=== PATIENT | female | born 1955 | race Caucasian/White ===

== ENCOUNTER 2016-09-11 19:32 | Emergency (ER) | payer OTHER ==
[~2016-09-11] VITALS: Ht 167.6 cm; Wt 85.9 kg
[~2016-09-11 19:32] MED LIST: AMT50T PO; GABA600T2 PO; LISI-567 PO; NAPR500T5 PO; TRAZ-115 PO
[2016-09-11 19:45] VITALS: BP 156/62; PULSE 82; RESP 19; O2SAT 96
--- NOTE | 2016-09-11 19:49 | ED.REPORT ---
HPI-General Illness Date of Service Sep 11, 2016 ED Provider: Rustam Crandall MD Pt is a 60 y.o. female with a hx of cirrhosis, HTN, and HLD who presents to the ED via EMS c/o fever (103.4F) onset 3 days ago. Pt reports associated non- productive cough, sore throat, malaise, myalgias, back pain, and increased urinary frequency. She denies dysuria and rash. She reports receiving her flu vaccination this season. She denies recent sick exposure, but does state that her grandsons high school has a mumps outbreak. Nursing Notes Stated Complaint: FEVER Chief Complaint: General Complaint Nursing Notes Reviewed: Yes Allergies: Coded Allergies: No Known Allergies (Unverified , 05/18/16) Scheduled Amitriptyline (Amitriptyline) 50 Mg Tab 50 MG PO HS Gabapentin (Gabapentin) 600 Mg Tablet 600 MG PO TID Lisinopril (Lisinopril) 20 Mg Tablet 20 MG PO DAILY Trazodone (Trazodone) 50 Mg Tablet 100 MG PO HS Scheduled PRN Benzonatate (Tessalon Perle) 100 Mg Capsule 100 MG PO TID PRN PRN For Cough Naproxen (Naproxen) 500 Mg Tablet.dr 500 MG PO BID PRN PRN For Pain Ondansetron ODT (Zofran ODT) 4 Mg Tablet 4 MG PO Q4H PRN PRN For Nausea General Time Seen by MD: 19:45 Chief Complaint Fever Hx Obtained From: Patient Arrived By: Ambulance Sudden in Onset?: Yes Onset Occurred: 3 days ago Symptom Duration: Since onset Location: : Back Quality: Painful Severity: Current: Mild Past Medical History Past Medical History Notes: PCP: Nick Avelar, [place], [place] Alcohol abuse- endorses having seizures in the past while detoxing. 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 Hx of neuropathy. Reports: Hyperlipidemia, Hypertension Past Surgical History C5-C6 fusion Umbilical hernia repair Ankle Fx surgery (left) Appendectomy Family History Noncontributory Smoking History Never Smoker Social History Alcohol Use: >5 per day Drug Use: Denies drug use Other Social History: Frequent ED visitor, Local resident, Homeless Ambulatory Status Independent Review of Systems Full Review of Systems Constitutional: Reports: Fever (103.4), Malaise Respiratory: Reports: Non-productive cough Female: Reports: Urinary frequency, Denies: Dysuria Musculoskeletal: Reports: Back pain, Myalgia Skin: Denies Rash Complete sys rev & neg: except as marked. Physical Exam Vital Signs Vital Signs Date Time Temp Pulse Resp B/P Pulse Ox O2 Delivery O2 Flow Rate FiO2 09/11/16 22:24 37.9 80 18 142/66 97 Room Air 09/11/16 21:33 38.0 09/11/16 19:45 39.5 82 19 156/62 96 Room Air Initial VS: Reviewed Head / Eyes: Atraumatic, Normocephalic Extremities: Vascular intact, Neuro intact Skin: Warm, Dry, No cyanosis Neurologic: Alert, Oriented, Nonfocal Psychiatric: Mood/affect normal, Behavior normal, Normal thought content General/Constitutional: Awake, Alert, Well appearing, Well developed, Well hydrated, Well nourished, Not toxic appearing ENT: Atraumatic, Airway patent, Mucous membranes moist Pharynx / Tonsils / Uvula: Positive: Pharyngeal erythema, Negative: Tonsillar exudate L, Tonsillar exudate R, Uvula deviated L, Uvula deviated R Neck: Atraumatic, Full range of motion Soft Tissue Neck: Positive: Cervical adenopathy L... (Anterior), Cervical adenopathy R... (Anterior) Respiratory / Chest: No stridor Abdomen: Atraumatic, Soft, Non-tender, No guarding, No rebound, No distention Interpretation & Diagnostics Lab Results Interpretation Result Diagram: 09/11/16199909/11/161999 Test 09/11/16 20:00 09/11/16 20:50 White Blood Count 7.1th/mm3 (3.8-10.1) Red Blood Count 4.29mil/mm3 (3.90-5.20) Hemoglobin 12.6g/dL (12.0-15.6) Hematocrit 35.8% (35.0-46.0) Mean Corpuscular Volume 83.4fL (81-100) Mean Corpuscular Hemoglobin 29.4pg (27.0-35.0) Mean Corpuscular Hemoglobin Concent 35.2% (32.0-37.0) Red Cell Distribution Width 14.0% (12.3-15.4) Platelet Count 81bil/L (150-400) Neutrophils (%) (Auto) 82.3% (40-74) Lymphocytes (%) (Auto) 7.4% (14-46) Monocytes (%) (Auto) 10.0% (4-12) Eosinophils (%) (Auto) 0.1% (0-5) Basophils (%) (Auto) 0.1% (0-3) Sodium Level 129mEq/L (134-144) Potassium Level 3.8mEq/L (3.5-5.2) Chloride Level 93mEq/L (97-108) Carbon Dioxide Level 19mmol/L (18-29) Blood Urea Nitrogen 8mg/dL (6-24) Creatinine 0.66mg/dL (0.57-1.00) Estimat Glomerular Filtration Rate 132mL/min (>59) Glucose Level 129mg/dL (60-99) Calcium Level 8.4mg/dL (8.5-10.1) Total Bilirubin 0.6mg/dL (0.0-1.2) Aspartate Amino Transf (AST/SGOT) 44U/L (0-50) Alanine Aminotransferase (ALT/SGPT) 27U/L (0-32) Alkaline Phosphatase 76U/L (25-150) Troponin T < 0.010ug/L (0.0-0.011) Pro-B-Type Natriuretic Peptide 803.9pg/mL (0-287) Total Protein 6.5g/dL (6.4-8.4) Albumin 3.9g/dL (3.4-5.0) Urine Color Yellow (YELLOW) Urine Appearance Clear (CLEAR,HAZY) Urine pH 7.0 (5.0-8.0) Urine Specific [place] 1.010 (1.003-1.035) Urine Protein Negativemg/dL (NEG,TRACE) Urine Glucose (UA) Negativemg/dL (NEGATIVE) Urine Ketones Tracemg/dL (NEGATIVE) Urine Occult Blood Negative (NEGATIVE) Urine Nitrite Negative (NEGATIVE) Urine Bilirubin Negative (NEGATIVE) Urine Urobilinogen Normalmg/dL (NORMAL) Urine Leukocyte Esterase Negative (NEGATIVE) Urine RBC 0-2/hpf (0-2) Urine WBC 0-5/hpf (0-5) Urine Epithelial Cells Occasional/hpf (NONE-MOD) Urine Crystals None seen (NONE SEEN) Urine Bacteria Few/hpf (NONE-FEW) Urine Hyaline Casts None/lpf (NONE) Urine Granular Casts None seen (NONE SEEN) Urine Waxy Casts None seen (NONE SEEN) Urine Red Blood Cell Casts None seen (NONE SEEN) Urine White Blood Cell Casts None seen (NONE SEEN) Urine Mucus None seen (None Seen) Urine Trichomonas None seen (NONE SEEN) Urine Yeast None (NONE SEEN) Urinalysis Comment None Urine Culture Reflexed Not indicated ECG Interpretation Time: 20:31 Interpreted by: ED physician Normal ECG Interpretation: Normal ECG w/ rate of... (79), Normal rate, Normal sinus rhythm, No acute ischemic changes, Normal QRS, Normal axis, Normal intervals, No change from prior ECGs (12/27/15) X-Ray Chest Interpretation Chest Xray Interpretation: IMPRESSION: No acute cardiopulmonary disease. Dictated by: Mauri Montesinos M.D. on 09/11/2016 at 20:53 Approved by: Mauri Montesinos M.D. on 09/11/2016 at 20:54 Re-Eval/Medical Decision Med Decision/Clinical Course Patient is a 52-year-old female who presents with constellation of symptoms including fever, malaise, fatigue, body aches, urinary symptoms (later reports no ongoing dysuria/frequency), as well as sore throat. Here in the emergency department the patient is febrile with a temperature of 39.5C was otherwise hemodynamically stable and in no apparent distress. She was treated with the below medications: Ibuprofen and IV fluids CXR: Obtained, reviewed and interpreted by myself shows no evidence of acute infiltrates, effusions or pneumothorax. Cardiac and mediastinal silhouette normal. No bony or soft tissue abnormalities. Laboratory studies notable as follow: Strep negative Flu B positive CMP unremarkable Mild hyponatremia sodium of 129 BMP mildly elevated UA unremarkable At this time overall constellation of symptoms consistent with influenza. Patient nontoxic appearing without underlying immunocompromised state. She is out of the window for treatment with Tamiflu and I do not feel that treatment with Tamiflu is necessary in this patient. She is tolerating PO and generally well in appearance. No evidence of pneumonia, urinary tract infection, soft tissue infection or meningitis. Abdominal examination benign. I feel the patient is appropriate for discharge home and symptomatic treatment. Recommend ibuprofen, Zofran for nausea and Tessalon for cough. Follow and return precautions were reviewed in detail and the patient verbalized understanding and agreement with the plan. Source of Hx: Old records Time of Eval: 21:55 Re-Evaluation/Progress Note: Pt rechecked. Discussed plan for discharge, pt understand and agrees with plan. Counseled Regarding: Diagnosis Discharge & Departure Primary Impression: Influenza B Additional Impressions: Fever Fever type: unspecified Qualified Code: R50.9 - Fever, unspecified Body aches Pharyngitis Pharyngitis/tonsillitis etiology: unspecified etiology Qualified Code: J02.9 - Acute pharyngitis, unspecified Disposition: Home Discharge Condition All VS Reviewed: Yes Condition: Improved Additional Instructions: Thank you for seeking care at emergency room. It is difficult for us to make definitive diagnoses in the ED but we believe that you are experiencing the flu. Our primary goal today in the ED was to evaluate you for any life-threatening conditions. Your evaluation was reassuring. You will be discharged with a prescription for Zofran for nausea and Tessalon for cough. You should follow-up with your primary doctor in the next week. Additionally I recommended taking ibuprofen up to 600 mg 3 times daily for the next 3-4 days until your symptoms begin to resolve. Get lots of rest and drink plenty of fluids. You should return to the ED immediately if you develop worsening symptoms, ongoing fevers, vomiting, cough, shortness of breath, chest pain, lightheadedness, weakness or any other concerning signs or symptoms. Thank you for letting us partake in your care today. Referrals: [facility] (PCP) Rafa Attestation Portions of this note were transcribed by Sherley Barillas. I, Dr. Crandall personally performed the history, physical exam and medical decision-making; I reviewed and confirmed the accuracy of the information in the transcribed note. Signed by: Rafa Blackman, 09/11/16 and [id number]. copies to: [facility] Rustam Crandall MD Sep 11, 2016 19:49 SHERLEY BARILLAS Sep 11, 2016 20:31
[2016-09-11 20:19] LABS: BASOPHILS % (AUTO) 0.1 % (0-3); EOSINOPHILS % (AUTO) 0.1 % (0-5); Mean Corpuscular Hemoglobin 29.4 pg (27.0-35.0); Mean Corpuscular Volume 83.4 fL (81-100); NEUTROPHILS % (AUTO) 82.3 % (40-74); Platelet Count 81 bil/L (150-400)
[2016-09-11] MEDS ORDERED: 0.9% Sodium Chloride 1,000 ML IV ONE (20:35)
[2016-09-11 20:51] LABS: TROPONIN T < 0.010 ug/L (0.0-0.011)
--- NOTE | 2016-09-11 20:55 | DRSVH ---
PROCEDURE: X-RAY CHEST ONE VIEW, PORTABLE ([id number]) INDICATIONS: 70 year-old female with fever and cough. TECHNIQUE: One view of the chest was acquired. COMPARISON: [facility], CR, XR CHEST 1VW (PORTABLE), 12/27/2015, 2:26. [facility], CR, XR CHEST 1VW (PORTABLE), 12/25/2015, 22:53. [facility], CR, XR CHEST 1VW (PORT ABLE), 08/07/2015, 21:13. FINDINGS: Surgical changes and devices: None. Lungs and pleura: No pleural effusions or pneumothorax. Lungs are clear. Mediastinum: Mediastinal contours appear normal. Heart size is normal. Bones and chest wall: No suspicious bony lesions. There is truncation of the lateral left clavicle as before, consistent with remote surgery and/or trauma. Overlying soft tissues appear unremarkable. IMPRESSION: No acute cardiopulmonary disease. Dictated by: Mauri Montesinos M.D. on 09/11/2016 at 20:53 Approved by: Mauri Montesinos M.D. on 09/11/2016 at 20:54
[2016-09-11 21:38] LABS: APPEARANCE,URINE CLEAR (CLEAR,HAZY); COLOR,URINE YELLOW (YELLOW); OCCULT BLOOD,URINE NEGATIVE (NEGATIVE); UROBILINOGEN,URINE NORMAL (NORMAL)
[2016-09-11] MEDS ORDERED: ONDA4TAB9 PO (21:52)
[2016-09-11] MEDS ORDERED: BENZ-12 PO (21:52)
[2016-09-11 22:24] VITALS: BP 142/66; PULSE 80; RESP 18; O2SAT 97
== END 2016-09-11 22:22 | disposition home or self-care (01) ==
LOC: SED 19:32 → EDUNIT# 19:32 → EDBD 19:32 → SED 22:22
DX: J10.89 Influenza due to other identified influenza virus with other manifestations (principal); R50.9 Fever, unspecified; R52 Pain, unspecified; J02.9 Acute pharyngitis, unspecified; R53.83 Other fatigue; R05 Cough; I10 Essential (primary) hypertension; E78.5 Hyperlipidemia, unspecified; F10.21 Alcohol dependence, in remission; Z87.19 Personal history of other diseases of the digestive system; Z59.0 Homelessness
CPT/HCPCS: 36415; 71010; 80053; 81000; 83880; 84484; 85025; 87804; 87880; 93005; 96360; 99285; J7030

== ENCOUNTER 2016-12-09 10:59 | Emergency (ER) | payer OTHER ==
[~2016-12-09 10:59] MED LIST changes: +BENZ-12 PO; +ONDA4TAB9 PO
--- NOTE | 2016-12-09 11:05 | ED.REPORT ---
HPI-Trauma Minor / Fall Date of Service Dec 09, 2016 ED Provider: Dr. Tejas Johns M.D. The patient is a 61 year old female with a medical history including alcohol abuse, cirrhosis, hypertension, and neuropathy who presents to the ED via EMS with a left-sided facial injury after falling off a sidewalk curb while intoxicated on alcohol just prior to arrival. The patient presents on a backboard with a c-collar in place. She doesn't remember the fall and is unsure whether or not she lost consciousness. The patient denies abdominal pain, neck pain, chest pain, hip pain, extremity pain, or other symptoms. EMS found the patient with a BP of 165/105, a pulse of 94, a blood sugar of 170, and a pulse ox of 97% on RA. Nursing Notes Stated Complaint: FALL Nursing Notes Reviewed: Yes Allergies: Coded Allergies: No Known Allergies (Unverified , 05/18/16) Scheduled Amitriptyline (Amitriptyline) 50 Mg Tab 50 MG PO HS Gabapentin (Gabapentin) 600 Mg Tablet 600 MG PO TID Lisinopril (Lisinopril) 20 Mg Tablet 20 MG PO DAILY Trazodone (Trazodone) 50 Mg Tablet 100 MG PO HS Scheduled PRN Benzonatate (Tessalon Perle) 100 Mg Capsule 100 MG PO TID PRN PRN For Cough Naproxen (Naproxen) 500 Mg Tablet.dr 500 MG PO BID PRN PRN For Pain Ondansetron ODT (Zofran ODT) 4 Mg Tablet 4 MG PO Q4H PRN PRN For Nausea General Time Seen by MD: 11:04 Chief Complaint Fall, Face injury Hx Obtained From: Patient Arrived By: Ambulance Onset Occurred: Just prior to arrival Symptom Duration: Since onset Caused by: Fall on ground Location: Face Quality: Painful Severity: Current: Moderate Severity: Maximum: Moderate Pertinent Negative: Relieved by nothing Context: Immunizations Tetanus up to date Recent Healthcare: No recent doctor visit Past Medical History Past Medical History Notes: PCP: Nick Avelar, [place], [place] Alcohol abuse- endorses having seizures in the past while detoxing. 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 Hx of neuropathy. Reports: Hyperlipidemia, Hypertension Past Surgical History C5-C6 fusion Umbilical hernia repair Ankle Fx surgery (left) Appendectomy Family History Noncontributory Smoking History Never Smoker Social History Alcohol Use: >5 per day Drug Use: Denies drug use Other Social History: Frequent ED visitor, Local resident, Homeless Ambulatory Status Independent Review of Systems Review of Systems Note: + Facial injury - Hip pain LOC STATUS UNKNOWN Constitutional: Denies: Fever Respiratory: Denies: Non-productive cough, Shortness of breath Musculoskeletal: Denies: Extremity pain, Neck pain Complete sys rev & neg: except as marked. Cardiovascular: Denies: Chest pain GI: Denies: Abdominal pain, Diarrhea, Vomiting Physical Exam Initial Vital Signs Vital Signs (First) Date Time Temp Pulse Resp B/P Pulse Ox O2 Delivery O2 Flow Rate FiO2 12/09/16 16:11 96 18 140/83 95 Room Air SEE TRAUMA SHEET Initial VS: Reviewed Skin: Warm, Dry, No cyanosis Neurologic: Alert, Oriented, Nonfocal Psychiatric: Mood/affect normal, Behavior normal, Normal thought content General/Constitutional: Awake, Alert Neck: No midline vertebral tend Trauma - Neck Specific: Positive: Immobilized - C Collar Head / Eyes: Normocephalic, PERRL (Pupils 5mm bilaterally) Periorbital: Positive: Periorbital swelling L... (Severe) Trauma - General: Positive: Abrasion (Left periorbital region), Ecchymosis ( Left periorbital region), Negative: Laceration Dried blood in hair but no obvious scalp trauma Could not appreciate traumatic hyphema ENT: Airway patent, Mucous membranes moist, Tympanic membs NL, Ext aud canal NL Trauma - ENT Specific: Negative: Septal hematoma L, Septal hematoma R No malocclusion Respiratory / Chest: Breath sounds NL, Breath sounds = bilat, No respiratory distress, No chest tenderness, No chest wall deformity, No crepitus Cardiovascular: Heart rate NL, Regular rhythm, Heart sounds NL, Peripheral circulation NL Abdomen: Soft, Non-tender Back: Atraumatic, Inspection NL, Non-tender, No midline vertebral tend No step-offs or deformities Upper Extremity / MS: Atraumatic, Inspection NL, Non-tender, No deformity Lower Extremity / Pelvis / MS: Atraumatic, Inspection NL, Non-tender, No deformity, Pelvis stable Interpretation & Diagnostics CT FACE W/O CONTRAST: IMPRESSION: 1. Inferior wall blowout fracture of the left orbit with partial herniation of orbital fat and involvement of the infraorbital foramen but no evidence of extraocular muscle herniation. There is associated partial fluid opacification of the left maxillary sinus. 2. Minimally displaced fractures of the lateral and medial morales of the left orbit. No intra-orbital collections. 3. Left periorbital soft tissue swelling and subcutaneous hematomas. Findings discussed with Dr. Johns on 12/09/16 at 12:05 PM. Dictated by: Anil Painter M.D. on 12/09/2016 at 11:58 URINE DRUG SCREEN: + Tricyclic Antidepressants + Oxycodone Otherwise Negative URINE DIPSTICK: Bedside Urine Specific [place] * 1.030 Bedside Urine pH * 6 Bedside Urine Leukocyte Esterase * Negative Bedside Urine Nitrite * Negative Bedside Urine Protein * Negative Bedside Urine Glucose * Normal Bedside Urine Ketones * Negative Bedside Urine Urobilinogen * Normal Bedside Urine Bilirubin * Negative Bedside Urine Occult Blood * Negative Urine to Lab * No Lab Results Interpretation Result Diagram: 12/09/16 1122 12/09/16 1122 Test 12/09/16 11:22 White Blood Count 5.6th/mm3 (3.8-10.1) Red Blood Count 4.83mil/mm3 (3.90-5.20) Hemoglobin 13.6g/dL (12.0-15.6) Hematocrit 37.3% (35.0-46.0) Mean Corpuscular Volume 77.2fL (81-100) Mean Corpuscular Hemoglobin 28.2pg (27.0-35.0) Mean Corpuscular Hemoglobin Concent 36.5% (32.0-37.0) Red Cell Distribution Width 14.0% (12.3-15.4) Platelet Count 105bil/L (150-400) Neutrophils (%) (Auto) 79.7% (40-74) Lymphocytes (%) (Auto) 15.9% (14-46) Monocytes (%) (Auto) 3.6% (4-12) Eosinophils (%) (Auto) 0.4% (0-5) Basophils (%) (Auto) 0% (0-3) Prothrombin Time 11.9sec (8.1-12.5) Prothromb Time International Ratio 1.11ratio Activated Partial Thromboplast Time 30.3sec (22.8-33.0) Sodium Level 127mEq/L (134-144) Potassium Level 3.7mEq/L (3.5-5.2) Chloride Level 90mEq/L (97-108) Carbon Dioxide Level 21mmol/L (18-29) Blood Urea Nitrogen 7mg/dL (6-24) Creatinine 0.60mg/dL (0.57-1.00) Estimat Glomerular Filtration Rate 147mL/min (>59) Glucose Level 180mg/dL (60-99) Calcium Level 8.1mg/dL (8.5-10.1) Magnesium Level 1.6mg/dL (1.6-2.6) Total Bilirubin 0.6mg/dL (0.0-1.2) Aspartate Amino Transf (AST/SGOT) 54U/L (0-50) Alanine Aminotransferase (ALT/SGPT) 28U/L (0-32) Alkaline Phosphatase 105U/L (25-165) Total Protein 7.4g/dL (6.4-8.4) Albumin 4.2g/dL (3.4-5.0) Lipase 45U/L (13-60) Alcohols 332mg/dL (0-10) ECG Interpretation ECG Interpretation: Sinus rhythm rate 86 Probable anteroseptal infarct, old Time: 11:39 Interpreted by: ED physician X-Ray Chest Interpretation Chest Xray Interpretation: IMPRESSION: No acute pulmonary process. Dictated by: Mine Preciado M.D. on 12/09/2016 at 10:33 View: Portable, 1 view Interpretation / Wet Read by: Interpret - Radiologist X-Ray Interpretation Xray Interpretation: IMPRESSION: No visualized acute fracture or dislocation. However, if clinical concern and/or pain persist, short interval imaging followup in 7-10 days is recommended, as occult injury cannot be definitively excluded. Dictated by: Mine Preciado M.D. on 12/09/2016 at 10:32 Study Performed: 1 View X-Ray Ordered: Pelvis Interpretation / Wet Read by: Interpret - Radiologist CT Head Interpretation IMPRESSION: 1. No acute intracranial process. 2. Large left periorbital/frontal/facial soft tissue hematoma. 3. Fluid and air is present within the left maxillary sinus. There is suspected to be fractures within the left inferior orbital and left maxillary sinus morales, although not well-visualized on this examination. Please refer to CT patient reports of 12/25/15 for further details. Dictated by: Mine Preciado M.D. on 12/09/2016 at 10:49 Study: Head CT no contrast Interpretation / Wet Read by: Interpret - ED physician CT C-Spine Interpretation IMPRESSION: 1. Multilevel degenerative changes without a visualized fracture. Dictated by: Mine Preciado M.D. on 12/09/2016 at 10:55 Study type: CT no contrast Interpretation / Wet Read by: Interpret - Radiologist Re-Eval/Medical Decision Med Decision/Clinical Course In summary, 61-year-old female with history of alcoholism presenting to the ED today after a fall from standing while intoxicated. This was witnessed according to EMS. Her only complaint at this time is pain to the left side of her face. Given that she was a fall from standing and has no other complaints, reassuring physical exam with no chest wall tenderness, abdominal tenderness, or extremity abnormalities/complaints, no further imaging aside from CT scans of the patient's head, face, and C-spine were obtained. Swelling around the periorbital region worsened while in the ED. Discussions with consultants as per below; appreciate recommendations. At 1900, [facility] facial trauma called back and accepted the patient for further evaluation and management. Discussed this with the patient at length, who was agreeable and had no further questions. Source of Hx: Old records Re-Evaluation/Progress #1: Time of Eval: 13:11 Patient Status: Condition improved Re-Evaluation/Progress Note: Patient rechecked. Discussed with patient CT and x-ray results with plan for ophthalmology consult. Patient agrees with plan for care and all questions were addressed. Re-Evaluation/Progress #2: Time of Eval: 17:00 Patient Status: Condition unchanged Re-Evaluation/Progress Note: Patient is still in pain. Discussed with patient CT, x-ray, and lab results, diagnosis, and plan for admit. Patient agrees with plan for care and all questions were addressed. Re-Evaluation/Progress #3: Time of Eval: 17:42 Patient Status: Condition improved Re-Evaluation/Progress Note: Discussed with patient surgery consult with plan for transfer to [facility]. Patient agrees with plan for care and all questions were addressed. Consultation #1: Referral / Consult Name: Jay Meyer MD Consulted With: ENT Call Returned at: 13:09 Raker Buffing Wheel: Agrees with eval, Agrees with plan, Referred to other consult ( [facility]) Consultation #2: Consulted With: Medical Assistant Per Diem Call Returned at: 13:22 Raker Buffing Wheel: Will see in office, Agrees with eval, Agrees with plan Note: Dr. Yue Monsivais, [facility]: Recommends discharge with close outpatient follow-up Consultation #3: Referral / Consult Name: Denton Baez MD Consulted With: Surgeon Call Returned at: 17:03 Raker Buffing Wheel: Agrees with eval, Agrees with plan Note: Discussed patient's case. Consultation #4: Referral / Consult Name: Denton Baez MD Consulted With: Surgeon Call Returned at: 17:18 Raker Buffing Wheel: Agrees with eval, Agrees with plan Note: Dr. Baez will consult ophthalmology and admit if they can provide adequate inpatient support. Consultation #5: Referral / Consult Name: Lucía Baez MD Consulted With: Surgeon Call Returned at: 17:30 Raker Buffing Wheel: Agrees with eval, Agrees with plan Note: Dr. Baez consulted a different porter sample case health outcomes liaison who recommended transfer to [facility]. Consultation #6: Call Returned at: 17:51 Raker Buffing Wheel: Agrees with eval, Agrees with plan Note: [facility] center requests CT scan images and will call back. Counseled Regarding: Diagnosis, Lab results, Need for transfer Discharge & Departure Impression: Primary Impression: Closed blow-out fracture of left orbit Encounter type: initial encounter Qualified Code: S02.32XA - Fracture of orbital floor, left side, initial encounter for closed fracture Disposition: Transfer, Acute Care Facility Receiving Hospital: [facility] Transfer Accepted: Yes Transfer Reason: Higher level of care, Trauma Patient Status: Stable Patient Informed: Yes Discharge Condition All VS Reviewed: Yes Condition: Stable Patient Instructions: Facial Fracture (ED) Referrals: [facility] (PCP) Rafa Attestation Portions of this note were transcribed by Susan Burrell. I, Dr. Johns, personally performed the history, physical exam, and medical decision-making; I reviewed and confirmed the accuracy of the information in the transcribed note. Signed by: Rafa Chin, 12/09/2016, 18:50 copies to: [facility] Tejas Johns MD Dec 09, 2016 11:04 SUSAN BURRELL Dec 09, 2016 11:11
[2016-12-09] MEDS ORDERED: 0.9% Sodium Chloride 1,000 ML IV ONE (11:17)
[2016-12-09 11:25] LABS: BASOPHILS % (AUTO) 0 % (0-3); EOSINOPHILS % (AUTO) 0.4 % (0-5); MONOCYTES % (AUTO) 3.6 % (4-12); Mean Corpuscular Hemoglobin 28.2 pg (27.0-35.0); Mean Corpuscular Volume 77.2 fL (81-100); NEUTROPHILS % (AUTO) 79.7 % (40-74); Platelet Count 105 bil/L (150-400)
[2016-12-09 11:30] LABS: INR 1.11 ratio
--- NOTE | 2016-12-09 11:34 | DRSVH ---
PROCEDURE: X-RAY PELVIS, ONE OR TWO VIEWS ([id number]) INDICATIONS: trauma TECHNIQUE: 1 view(s) of the pelvis acquired. COMPARISON: [facility], CR, XR PELVIS 1 OR 2VW, 12/25/2015, 22:53. FINDINGS: Bones: No fractures or dislocations. No suspicious bony lesions. Soft tissues: Visualized bowel gas pattern is normal. No suspicious soft tissue calcifications. IMPRESSION: No visualized acute fracture or dislocation. However, if clinical concern and/or pain pe rsist, short interval imaging followup in 7-10 days is recommended, as occult injury cannot be defini tively excluded. Dictated by: Mine Preciado M.D. on 12/09/2016 at 10:32 Approved by: Mine Preciado M.D. on 12/09/2016 at 10:33
[2016-12-09 11:35] LABS: Magnesium 1.6 mg/dL (1.6-2.6)
--- NOTE | 2016-12-09 11:35 | DRSVH ---
PROCEDURE: X-RAY CHEST ONE VIEW, PORTABLE ([id number]) INDICATIONS: trauma TECHNIQUE: One view of the chest was acquired. COMPARISON: , CR, XR CHEST 1VW (PORTABLE), 09/11/2016, 20:00. FINDINGS: Surgical changes and devices: None. Lungs and pleura: No pleural effusions or pneumothorax. Lungs are clear. Mediastinum: Mediastinal contours appear normal. Heart size is normal. Bones and chest wall: No suspicious bony lesions. Overlying soft tissues appear unremarkable. IMPRESSION: No acute pulmonary process. Dictated by: Mine Preciado M.D. on 12/09/2016 at 10:33 Approved by: Mine Preciado M.D. on 12/09/2016 at 10:33
--- NOTE | 2016-12-09 11:56 | DRSVH ---
PROCEDURE: CT BRAIN WITHOUT CONTRAST ([id number]) INDICATIONS: trauma TECHNIQUE: Noncontrast 4.5 mm thick angled axial sections acquired from the foramen magnum to the vertex, with c oronal reformats. COMPARISON: [facility], CT, CT FACE WO CON, 12/25/2015, 22:47. [facility], C T, CT FACE WO CON, 12/09/2016, 11:32. Outside Film, CT, CT BRAIN WO CON, 12/27/2015, 6:19. FINDINGS: Image quality: Excellent. CSF spaces: Basal cisterns are patent. No extra-axial fluid collections. The ventricles are symmet mason in size and shape. Brain: No intracranial bleeds or masses. There is cerebral volume loss for age, with resultant vent ricular and sulcal prominence. There are periventricular and deep white matter chronic small vessel ischemic changes. There is intracranial internal carotid artery atherosclerosis. Skull, sinuses and face: There is a large left periorbital/frontal/facial soft tissue hematoma. There is fluid and air within the left maxillary sinus.There is suspected to be fractures within the left inferior orbital and left lateral maxillary morales, although not well visualized on this examination. IMPRESSION: 1. No acute intracranial process. 2. Large left periorbital/frontal/facial soft tissue hematoma. 3. Fluid and air is present within the left maxillary sinus. There is suspected to be fractures withi n the left inferior orbital and left maxillary sinus morales, although not well-visualized on this exam ination. Please refer to CT patient reports of 12/25/15 for further details. Dictated by: Mine Preciado M.D. on 12/09/2016 at 10:49 Approved by: Mine Preciado M.D. on 12/09/2016 at 10:54
--- NOTE | 2016-12-09 11:58 | DRSVH ---
PROCEDURE: CT CERVICAL SPINE WITHOUT CONTRAST ([id number]) INDICATIONS: trauma TECHNIQUE: Noncontrast 3 mm thick sections acquired from the skull base to the T4 level. Sagittal and coronal r eformats were then constructed. For radiation dose reduction, the following was used: automated exp osure control, adjustment of mA and/or kV according to patient size. COMPARISON: [facility], CT, CT CERVICAL SPINE WO CON, 12/27/2015, 2:29. FINDINGS: Image quality: Excellent. Bones: There is reversal cervical curvature with apex at C5-6. There is near-complete osseous fusion of C5 and C6. There is minimal anterior listhesis of C4 on C5, trace retrolisthesis of C5 on C6. Prom inent disc space narrowing is present at C6-7. Soft tissues: Prevertebral soft tissues are normal in thickness. No paravertebral hematomas. No ap ical pneumothoraces. IMPRESSION: 1. Multilevel degenerative changes without a visualized fracture. Dictated by: Mine Preciado M.D. on 12/09/2016 at 10:55 Approved by: Mine Preciado M.D. on 12/09/2016 at 10:56
--- NOTE | 2016-12-09 12:09 | DRSVH ---
PROCEDURE: CT FACE WITHOUT CONTRAST ([id number]) INDICATIONS: trauma TECHNIQUE: Noncontrast 1.5 mm thick axial images acquired from the mandible through the frontal sinuses, with co billy and sagittal reformatting. For radiation dose reduction, the following was used: automated ex posure control. COMPARISON: None. FINDINGS: Image quality: Excellent. Bones and teeth: There is a mildly depressed inferior blowout fracture of the left orbit with involv ement of the infraorbital foramen. There is slight herniation of orbital fat without extraocular mus stan herniation. There is a minimally displaced fracture of the left lateral orbital wall and a minim ally displaced fracture of the lamina papyracea medially. Nasal bones and septum are intact. Visual ized portions of the mandible demonstrate no fractures or subluxation. Zygomatic arches are intact. Pterygoid plates are intact. Visualized portions of the skull base and auditory canals are intact. Sinuses: There is partial fluid opacification within the left maxillary sinus. Mastoid air cells ar e aerated. Soft tissues: There is left facial and periorbital soft tissue swelling with associated subcutaneous hematomas. Vascular: Visualized vascular structures appear normal in the absence of contrast. Bony vascular fo ramina and canals are intact. IMPRESSION: 1. Inferior wall blowout fracture of the left orbit with partial herniation of orbital fat and invol vement of the infraorbital foramen but no evidence of extraocular muscle herniation. There is associ ated partial fluid opacification of the left maxillary sinus. 2. Minimally displaced fractures of the lateral and medial morales of the left orbit. No intra-orbita l collections. 3. Left periorbital soft tissue swelling and subcutaneous hematomas. Findings discussed with Dr. Johns on 12/09/16 at 12:05 PM. Dictated by: Anil Painter M.D. on 12/09/2016 at 11:58 Approved by: Anil Painter M.D. on 12/09/2016 at 12:07
[2016-12-09] MEDS ORDERED: HYDROmorphone 0.5 mg/0.5 mL iSecure Syringe IVPUSH ONE (13:05)
[2016-12-09] MEDS: HYDROmorphone 0.5 mg/0.5 mL iSecure Syringe IVPUSH PRN ×3 (14:37→17:12)
[2016-12-09 16:11] VITALS: BP 140/83; PULSE 96; RESP 18; O2SAT 95
[2016-12-09 17:53] VITALS: BP 140/71; PULSE 104; RESP 20; O2SAT 95
[2016-12-09] MEDS ORDERED: Ondansetron 2 mg/mL 2 mL Inj IVPUSH ONE (19:00)
[2016-12-09] MEDS ORDERED: HYDROmorphone 1 mg/mL Inj IVPUSH PRN (19:00)
[2016-12-09 19:20] VITALS: BP 157/82; PULSE 98; RESP 18; O2SAT 98
[2016-12-09 19:44] VITALS: BP 157/82; PULSE 98; RESP 18; O2SAT 98
== END 2016-12-09 19:45 | disposition short-term general hospital (02) ==
LOC: EDBD 10:59 → SED 10:59 → EDUNIT# 10:59 → SED 19:45
DX: S02.32XA Fracture of orbital floor, left side, initial encounter for closed fracture (principal); W10.1XXA Fall (on)(from) sidewalk curb, initial encounter; Y92.480 Sidewalk as the place of occurrence of the external cause; Y93.01 Activity, walking, marching and hiking; Y99.8 Other external cause status; I10 Essential (primary) hypertension; E78.5 Hyperlipidemia, unspecified; F10.220 Alcohol dependence with intoxication, uncomplicated; Y90.8 Blood alcohol level of 240 mg/100 ml or more; Z59.0 Homelessness; Z86.69 Personal history of other diseases of the nervous system and sense organs; Z87.19 Personal history of other diseases of the digestive system
CPT/HCPCS: 36415; 70450; 70486; 71010; 72125; 72170; 80053; 83690; 83735; 85025; 85610; 85730; 86850; 90791; 93005; 96361; 96374; 96375; 96376; 99285; G0390; G0480; J1170; J2405; J7030

== ENCOUNTER 2017-03-10 20:10 | Emergency (ER) | payer OTHER ==
[~2017-03-10] VITALS: Ht 167.6 cm; Wt 85.5 kg
[2017-03-10 20:12] VITALS: BP 129/66; PULSE 80; RESP 15; O2SAT 99
--- NOTE | 2017-03-10 20:19 | ED.REPORT ---
HPI-Chest Pain 40 and Over Date of Service Mar 10, 2017 ED Provider: Preet Aleman DO 61-year-old female presents intoxicated. Evidently she was told someone she is having chest pain is medics did an EKG and gave her aspirin. She presents to me telling me that she never had chest pain and that she fell and hit her head. She complains of right-sided facial pain and headache. She denies having chest pain or shortness of breath. She denies having a history of pulmonary embolus. She does not have any pain when she takes a deep breath. She states that she has recently been seen for chest pain she was told that everything was okay. She did not suffer a syncopal episode today. Nursing Notes Stated Complaint: CHEST PAIN Chief Complaint: Chest Pain Nursing Notes Reviewed: Yes Allergies: Coded Allergies: No Known Allergies (Unverified , 03/10/17) Scheduled Amitriptyline (Amitriptyline) 50 Mg Tab 50 MG PO HS Gabapentin (Gabapentin) 600 Mg Tablet 600 MG PO TID Lisinopril (Lisinopril) 20 Mg Tablet 20 MG PO DAILY Trazodone (Trazodone) 50 Mg Tablet 100 MG PO HS Scheduled PRN Benzonatate (Tessalon Perle) 100 Mg Capsule 100 MG PO TID PRN PRN For Cough Naproxen (Naproxen) 500 Mg Tablet.dr 500 MG PO BID PRN PRN For Pain Ondansetron ODT (Zofran ODT) 4 Mg Tablet 4 MG PO Q4H PRN PRN For Nausea General Time Seen by MD: 20:18 Chief Complaint Chest pain Hx Obtained From: Patient, EMS Arrived By: Ambulance Sudden in Onset?: No Location: : Chest left: Chest right Quality: Painful Radiation: : Does not radiate Migration/Movement: Reports: None Severity: Current: No pain currently Severity: Maximum: Pain level 7 out of 10 Recent Healthcare: No recent doctor visit, No recent hospitalization Similar Sx Previous: No Risk Factors )( CAD Risk Stratification No Family history, No Hyperlipidemia, No Known CAD, No Smoking Risk factors reviewed )( PE Risk Stratification No Estrogen Medicine / BCP's, No Satish, No Immobilization, No Malignancy, No , No , No Previous DVT, No Previous PE, No Surgery Last 60 Days, No Trauma Risk factors reviewed, No risk factors HEART Score HEART for MACE Score: 0-3 (low risk 0.9%-1.7%) Well's Criteria for PE Well's PE Score: 0-2 pts (low risk 3.6%) Past Medical History Past Medical History Notes: PCP: Nick Avelar, [place], [place] Alcohol abuse- endorses having seizures in the past while detoxing. 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 Neuropathy. Reports: Hyperlipidemia, Hypertension Past Surgical History C5-C6 fusion Umbilical hernia repair Ankle Fx surgery (left) Appendectomy Family History Noncontributory Smoking History Never Smoker Social History Alcohol Use: >5 per day Drug Use: Denies drug use Other Social History: Frequent ED visitor, Local resident, Homeless Ambulatory Status Independent Review of Systems Constitutional: Denies: Fever Cardiovascular: Reports: Chest pain (resolved) GI: Denies: Diarrhea, Vomiting Complete sys rev & neg: except as marked. Physical Exam Initial Vital Signs Vital Signs (First) Date Time Temp Pulse Resp B/P Pulse Ox O2 Delivery O2 Flow Rate FiO2 03/10/17 20:12 36.7 80 15 129/66 99 Room Air Initial VS: Reviewed Neck: Supple, Full range of motion Extremities: Vascular intact, Neuro intact Skin: Warm, Dry, No cyanosis Neurologic: Alert, Oriented, Nonfocal Psychiatric: Mood/affect normal, Behavior normal General/Constitutional: Awake, Alert Smells of alcohol Respiratory / Chest: Atraumatic, Breath sounds NL, Breath sounds = bilat She denies current chest pain Cardiovascular: Heart rate NL, Regular rhythm, Heart sounds NL Abdomen: Atraumatic, Soft, Non-tender HEAD/EYES: Ecchymosis and swelling to right eye Interpretation & Diagnostics CT FACE WITHOUT CONTRAST: IMPRESSION: 1. Residual appearance of previous left orbital wall fractures as above. No new superimposed fractures are identified. Dictated by: Mine Preciado M.D. on 03/10/2017 at 21:32 Lab Results Interpretation Result Diagram: 03/10/17204203/10/172042 Test 03/10/17 20:43 03/10/17 21:09 03/11/17 00:30 White Blood Count 3.7th/mm3 (3.8-10.1) Red Blood Count 4.06mil/mm3 (3.90-5.20) Hemoglobin 10.1g/dL (12.0-15.6) Hematocrit 30.7% (35.0-46.0) Mean Corpuscular Volume 75.6fL (81-100) Mean Corpuscular Hemoglobin 24.9pg (27.0-35.0) Mean Corpuscular Hemoglobin Concent 32.9% (32.0-37.0) Red Cell Distribution Width 15.3% (12.3-15.4) Platelet Count 129bil/L (150-400) Neutrophils (%) (Auto) 61.2% (40-74) Lymphocytes (%) (Auto) 27.4% (14-46) Monocytes (%) (Auto) 8.4% (4-12) Eosinophils (%) (Auto) 2.4% (0-5) Basophils (%) (Auto) 0.3% (0-3) Sodium Level 133mEq/L (134-144) Potassium Level 3.4mEq/L (3.5-5.2) Chloride Level 98mEq/L (97-108) Carbon Dioxide Level 19mmol/L (18-29) Blood Urea Nitrogen 7mg/dL (6-24) Creatinine 0.67mg/dL (0.57-1.00) Estimat Glomerular Filtration Rate 129mL/min (>59) Glucose Level 102mg/dL (60-99) Calcium Level 8.1mg/dL (8.5-10.1) Magnesium Level 1.8mg/dL (1.6-2.6) Total Bilirubin 0.4mg/dL (0.0-1.2) Aspartate Amino Transf (AST/SGOT) 39U/L (0-50) Alanine Aminotransferase (ALT/SGPT) 23U/L (0-32) Alkaline Phosphatase 100U/L (25-165) Total Protein 7.6g/dL (6.4-8.4) Albumin 3.6g/dL (3.4-5.0) Lipase 55U/L (13-60) Hold Marques Top Tube Received (Received) Alcohols 265mg/dL (0-10) Hold Urine Received (Received) Troponin T 0.010ug/L (0.0-0.011) ECG Interpretation ECG Interpretation: Normal ST segments Time: 20:23 Normal ECG Interpretation: Normal sinus rhythm (with a rate of 82) X-Ray Chest Interpretation Chest Xray Interpretation: IMPRESSION: No acute pulmonary process. Dictated by: Mine Preciado M.D. on 03/10/2017 at 21:07 View: Portable, 1 view Interpretation / Wet Read by: Interpret - Radiologist CT Head Interpretation IMPRESSION: 1. No acute intracranial process. Dictated by: Mine Preciado M.D. on 03/10/2017 at 21:29 Re-Eval/Medical Decision Med Decision/Clinical Course 61-year-old female presents to his intoxicated after suffering a ground-level fall and head injury. Some more along the line she was told someone that she had chest pain because of medics gave her aspirin and did an EKG. She adamantly denies ever complaining of any chest pain. She complains of facial pain. She states she did not pass out she tripped and fell. She has admitted to drinking heavily today. On examination her vitals were stable. She smelled alcohol beverages. She had bruising to the side of her face. Respiratory exam is very benign. Surgical pulses were normal. EKG was reassuring. CT scan brain and facial bones were negative. The patient was observed and sobered up. At discharge she was asymptomatic. She was clinically sober. Her speech was rapid and articulate. She denied having any chest pain, shortness of breath. Never had a syncopal episode. Pulmonary embolus seems very unlikely. Myocardial infarction ruled out. Intracranial hemorrhage ruled out. I strongly recommend that she commits to alcohol cessation and close outpatient follow-up. Source of Hx: Old records Time of Eval: 01:26 Re-Evaluation/Progress Note: Pt rechecked. She is awake, alert, and more sober. Informed pt of plan for discharge. Pt understands and agrees with plan for discharge. F/U instructions and RTER warnings given. All questions addressed. Counseled Regarding: Diagnosis, Lab results, Need for follow-up, When/why to return to ED Discharge & Departure Primary Impression: Blunt head trauma Encounter type: initial encounter Qualified Code: S09.8XXA - Other specified injuries of head, initial encounter Additional Impressions: Blunt trauma of face Encounter type: initial encounter Qualified Code: S09.93XA - Unspecified injury of face, initial encounter Chest pain Chest pain type: unspecified Qualified Code: R07.9 - Chest pain, unspecified Alcohol intoxication Complication of substance-induced condition: uncomplicated Qualified Code: F10.120 - Alcohol abuse with intoxication, uncomplicated Disposition: Home Discharge Condition All VS Reviewed: Yes Condition: Stable Patient Instructions: Alcohol Intoxication (ED), Chest Pain (ED) Additional Instructions: Your cardiac enzymes were normal today without signs of injury. I recommend that you stop drinking. You have anemia. This should be followed up with your primary care provider. Call your primary care provider Monday for a follow up appointment next week. Attend alcohol anonymous meetings. Don't drive tonight. Return to the Emergency Department for new or worrisome symptoms. Referrals: [facility] (PCP) Alcoholics Anonymous (SELVNI) Rafa Attestation Portions of this note were transcribed by Kenya Brower. I, Dr. Aleman personally performed the history, physical exam and medical decision-making; I reviewed and confirmed the accuracy of the information in the transcribed note. Signed by : Rafa Parr, 03/10/17. copies to: [facility] ; Alcoholics Anonymous (AA) Preet Aleman DO Mar 10, 2017 20:18 Kenya Brooke Mar 10, 2017 20:29
[2017-03-10 20:54] LABS: BASOPHILS % (AUTO) 0.3 % (0-3); EOSINOPHILS % (AUTO) 2.4 % (0-5); MONOCYTES % (AUTO) 8.4 % (4-12); Mean Corpuscular Hemoglobin 24.9 pg (27.0-35.0); Mean Corpuscular Volume 75.6 fL (81-100); NEUTROPHILS % (AUTO) 61.2 % (40-74); Platelet Count 129 bil/L (150-400)
[2017-03-10] MEDS ORDERED: 0.9% Sodium Chloride 1,000 ML IV ONE (21:05)
--- NOTE | 2017-03-10 21:09 | DRSVH ---
PROCEDURE: X-RAY CHEST ONE VIEW, PORTABLE ([id number]) INDICATIONS: SHORTNESS OF BREATH TECHNIQUE: One view of the chest was acquired. COMPARISON: [facility], CR, XR CHEST 1VW (PORTABLE), 09/11/2016, 20:00. [facility], CR, XR CHEST 1VW (PORTABLE), 12/09/2016, 11:11. FINDINGS: Surgical changes and devices: None. Lungs and pleura: No pleural effusions or pneumothorax. Lungs are clear. Mediastinum: Mediastinal contours appear normal. Heart size is normal. Bones and chest wall: No suspicious bony lesions. Overlying soft tissues appear unremarkable. IMPRESSION: No acute pulmonary process. Dictated by: Mine Preciado M.D. on 03/10/2017 at 21:07 Approved by: Mine Preciado M.D. on 03/10/2017 at 21:08
[2017-03-10 21:31] LABS: Magnesium 1.8 mg/dL (1.6-2.6); TROPONIN T 0.01 ug/L (0.0-0.011)
--- NOTE | 2017-03-10 21:33 | DRSVH ---
PROCEDURE: CT BRAIN WITHOUT CONTRAST ([id number]) INDICATIONS: trauma to right face and head TECHNIQUE: Noncontrast 4.5 mm thick angled axial sections acquired from the foramen magnum to the vertex, with c oronal reformats. COMPARISON: [facility], CT, CT BRAIN WO CON, 12/09/2016, 11:32. [facility], CT, CT FACE WO CON, 03/10/2017, 21:13. FINDINGS: Image quality: Excellent. CSF spaces: Basal cisterns are patent. No extra-axial fluid collections. Ventricles are normal in size and shape. Brain: No midline shift. No intracranial masses or hemorrhage. Tomlinson-white matter interface is norm al. Skull and face: Calvarium and visualized facial bones are intact, without suspicious lesions. Sinuses: Visualized sinuses and mastoids are clear. IMPRESSION: 1. No acute intracranial process. Dictated by: Mine Preciado M.D. on 03/10/2017 at 21:29 Approved by: Mine Preciado M.D. on 03/10/2017 at 21:32
--- NOTE | 2017-03-10 21:37 | DRSVH ---
PROCEDURE: CT FACE WITHOUT CONTRAST ([id number]) INDICATIONS: trauma to right face and head TECHNIQUE: Noncontrast 1.5 mm thick axial images acquired from the mandible through the frontal sinuses, with co billy and sagittal reformatting. For radiation dose reduction, the following was used: automated ex posure control. COMPARISON: [facility], CT, CT FACE WO CON, 12/25/2015, 22:47. [facility], C T, CT FACE WO CON, 12/09/2016, 11:32. FINDINGS: Image quality: Excellent. Bones and teeth: It is noted that a blowout fracture of the inferior left orbital wall as well as lat eral and medial left orbital wall fractures were identified on prior exam dated 12/09/16. They are pres ent although less prominent on today's exam. No new orbital wall fractures are identified. Small focu s of presumably air within the left facial soft tissues. Sinus morales show no fracture or deformity. Nasal bones and septum are intact. Visualized portions of the mandible demonstrate no fractures or s ubluxation. Zygomatic arches are intact. Pterygoid plates are intact. Visualized portions of the s kull base and auditory canals are intact. Sinuses: Paranasal sinuses are aerated, without fluid levels, mucosal thickening, or mucoceles. Mas toid air cells are aerated. Soft tissues: No edema, masses, or fluid collections. No enlarged lymph nodes. No soft tissue lace rations or debris. Vascular: Visualized vascular structures appear normal in the absence of contrast. Bony vascular fo ramina and canals are intact. IMPRESSION: 1. Residual appearance of previous left orbital wall fractures as above. No new superimposed fracture s are identified. Dictated by: Mine Preciado M.D. on 03/10/2017 at 21:32 Approved by: Mine Preciado M.D. on 03/10/2017 at 21:35
[2017-03-10 21:44] VITALS: BP 113/54; PULSE 75; RESP 15; O2SAT 96
[2017-03-11 06:26] VITALS: BP 178/93; PULSE 102; RESP 16; O2SAT 95
== END 2017-03-11 06:17 | disposition home or self-care (01) ==
LOC: SED 20:10 → EDUNIT# 20:10 → EDBD 20:10 → SED 03-11 06:17
DX: S09.8XXA Other specified injuries of head, initial encounter (principal); S00.83XA Contusion of other part of head, initial encounter; W18.39XA Other fall on same level, initial encounter; Y93.89 Activity, other specified; Y92.89 Other specified places as the place of occurrence of the external cause; Y99.8 Other external cause status; R07.9 Chest pain, unspecified; F10.120 Alcohol abuse with intoxication, uncomplicated; I10 Essential (primary) hypertension; E78.5 Hyperlipidemia, unspecified; Z95.0 Presence of cardiac pacemaker
CPT/HCPCS: 36415; 70450; 70486; 71010; 80053; 81025; 82075; 83690; 83735; 84484; 85025; 93005; 96360; 99285; G0480; J7030